=== PATIENT | female | born 1975 | race African-American/Black ===

== ENCOUNTER 2017-01-02 15:34 | Emergency (ER) | payer SELFPAY ==
[~2017-01-02] VITALS: Ht 167.6 cm; Wt 80.0 kg
[~2017-01-02 15:34] MED LIST: ASPI81TA82 PO; CARV3.125 PO
[2017-01-02 15:38] VITALS: BP 176/88; PULSE 88; RESP 18; TEMP 97.7; O2SAT 100
[2017-01-02 15:54] LABS: BLOOD, URINE LARGE (NEG); GLUCOSE,URINE NEG (NEG); KETONE, URINE NEG (NEG); NITRITE,URINE NEG (NEG)
[2017-01-02 16:05] LABS: URINE COLOR STRAW (YELLW/STRAW)
[2017-01-02 16:06] LABS: COMMENT (UR) CULTURE INDICATED; CULTURE IF INDICATED CULTURE INDICATED; SQUAMOUS EPITHELIAL CELL URINE > 8 /hpf (0-5); WBC, URINE INNUM /hpf (0-5)
--- NOTE | 2017-01-02 16:20 | PD ---
HPI Chief Complaint: Complaint Time Seen by Provider: 16:00 Travel History International Travel<30 days: No Contact w/Intl Traveler<30days: No Traveled to known affect area: No History of Present Illness HPI 41-year-old female presents to the emergency department for evaluation of urinary frequency, urgency, dysuria times one day. Patient denies fever, chills , back pain, nausea or vomiting. She reports she's had a UTI in the past with similar symptoms. Symptom severity is moderate. No aggravating or alleviating factors. PFSH Past Medical History Arthritis: No Asthma: No Autoimmune Disease: No Blood Disorders: No Anxiety: Yes Depression: No Heart Rhythm Problems: Yes Cancer: No Cardiac Catheterization: Yes Cardiovascular Problems: Yes High Cholesterol: No Chemotherapy: No Chest Pain: No Congestive Heart Failure: No COPD: No Cerebrovascular Accident: No Diabetes: No Diminished Hearing: No Endocrine: No GERD: No Glaucoma: No Genitourinary: No Headaches: No Hepatitis: No Hiatal Hernia: No Hypertension: No Immune Disorder: No Kidney Stones: No Musculoskeletal: No Neurologic: Yes (SYNCOPAL EPISODES) Psychiatric: No Reproductive: No Respiratory: No Immunizations Current: No Migraines: No Myocardial Infarction: No Radiation Therapy: No Renal Failure: No Seizures: Yes (FAMILY WITNESSED SEIZURE X 1 01/19/10 EVAC WITNESSED 2 ) Sickle Cell Disease: No Sleep Apnea: No Thyroid Disease: No Ulcer: No Influenza Vaccination: No PNEUMOCCOCAL Vaccine (Year): 2 ?: Not LMP: 12/2016 Menopausal: No : 2 Para: 1 Miscarriage: 1 Past Surgical History Abdominal Surgery: No AICD: No Appendectomy: No Arteriovenous Shunt: No Cardiac Surgery: No Cholecystectomy: No Ear Surgery: No Endocrine Surgery: No Eye Surgery: No Genitourinary Surgery: No Gynecologic Surgery: No Insulin Pump: No Joint Replacement: No Oral Surgery: No Pacemaker: No Thoracic Surgery: No Social History Alcohol Use: Yes (occ) Tobacco Use: No Substance Use: No Allergies-Medications (Allergen,Severity, Reaction): Coded Allergies: No Known Allergies (Verified , 01/02/17) Reported Meds & Prescriptions Reported Meds & Active Scripts Active No Active Prescriptions or Reported Medications Review of Systems Except as stated in HPI: all other systems reviewed are Neg General / Constitutional: No: Fever Eyes: No: Visual changes HENT: No: Headaches Cardiovascular: No: Chest Pain or Discomfort Respiratory: No: Shortness of Breath Gastrointestinal: No: Abdominal Pain Genitourinary: Positive: Urgency, Frequency, Dysuria Physical Exam Narrative GENERAL: Well-nourished, well-developed patient. SKIN: Focused skin assessment warm/dry. HEAD: Normocephalic. EYES: No scleral icterus. No injection or drainage. NECK: Supple, trachea midline. No JVD or lymphadenopathy. CARDIOVASCULAR: Regular rate and rhythm without murmurs, gallops, or rubs. RESPIRATORY: Breath sounds equal bilaterally. No accessory muscle use. GASTROINTESTINAL: Abdomen soft, non-tender, nondistended. MUSCULOSKELETAL: No cyanosis, or edema. BACK: Nontender without obvious deformity. No CVA tenderness. Data Data Last Documented VS Vital Signs Date Time Temp Pulse Resp B/P Pulse Ox O2 Delivery O2 Flow Rate FiO2 01/02/17 15:38 97.7 88 18 176/88 100 Orders Urinalysis - C+S If Indicated (01/02/17 15:40) Urine Culture (01/02/17 15:50) Labs Laboratory Tests Test 01/02/17 15:50 Urine Color STRAW Urine Turbidity SLIGHT Urine pH 6.0 Urine Specific [place] 1.002 Urine Protein NEG mg/dL Urine Glucose (UA) NEG mg/dL Urine Ketones NEG mg/dL Urine Occult Blood LARGE Urine Nitrite NEG Urine Bilirubin NEG Urine Leukocyte Esterase LARGE Urine RBC 10-14 /hpf Urine WBC INNUM /hpf Urine WBC Clumps FEW Urine Squamous Epithelial > 8 /hpf Cells Microscopic Urinalysis Comment CULTURE INDICATED MDM Medical Decision Making Medical Screen Exam Complete: Yes Emergency Medical Condition: Yes Differential Diagnosis UTI, pyelonephritis, vaginitis Narrative Course 41-year-old female with chief complaint of dysuria, frequency, urgency times one day. Patient denies fever, chills, back pain, nausea or vomiting. Patient is well-appearing and physical exam is benign. UA reveals 10-15 RBCs, and innumerous WBCs. Patient will be treated for UTI. She was encouraged to push fluids. Follow-up with primary care doctor. Return precautions discussed. Patient verbalizes understanding and agrees to plan. Diagnosis Primary Impression: UTI (urinary tract infection) Qualified Code: N30.01 - Acute cystitis with hematuria Referrals: Primary Care Physician Additional Instructions: Take the antibiotics as prescribed. Stay well hydrated by drinking plenty of fluids. Return to the emergency department if he developed new or worsening symptoms such as fever, chills, severe back pain, nausea or vomiting. Scripts Phenazopyridine (Pyridium)100 Mg [id number] Mg PO Q8H PRN (DYSURIA) #6 TAB Ref 0 Prov:Anita Lin 01/02/17 Nitrofurantoin Monohydrate Macrocrystals (Macrobid)100 Mg [id number] Mg PO BID #14 CAP Ref 0 Prov:Anita Lin 01/02/17 Disposition: 01 DISCHARGE HOME Condition: Stable Anita Lin Jan 02, 2017 16:20
[2017-01-02] MEDS ORDERED: MACR100C2 PO (16:21)
[2017-01-02] MEDS ORDERED: PHEN0.4T PO (16:21)
== END 2017-01-02 16:34 | disposition home or self-care (01) ==
LOC: PHED 15:34
DX: N30.01 Acute cystitis with hematuria (principal); B96.89 Other specified bacterial agents as the cause of diseases classified elsewhere
CPT/HCPCS: 81001; 87086; 99284

== ENCOUNTER 2017-03-11 15:57 | Emergency (ER) | payer SELFPAY ==
[~2017-03-11] VITALS: Ht 167.6 cm; Wt 77.3 kg
[~2017-03-11 15:57] MED LIST changes: -ASPI81TA82 PO; -CARV3.125 PO; +MACR100C2 PO; +PHEN0.4T PO
[2017-03-11 16:00] VITALS: BP 158/87; PULSE 87; RESP 16; TEMP 97.9; O2SAT 100
[2017-03-11] MEDS ORDERED: beta blocker PO (16:17)
--- NOTE | 2017-03-11 16:31 | PD ---
HPI Chief Complaint: Syncope/Near-Syncope Time Seen by Provider: 16:18 Travel History International Travel<30 days: No Contact w/Intl Traveler<30days: No Traveled to known affect area: No History of Present Illness HPI 41-year-old female came to the emergency room after she had a near syncopal episode at work. Patient said she recently had an argument with somebody after which this happened. She did not completely pass out however. She sat down and once the feeling went away she started doing her work again. But since then she noticed that she was going to the restroom frequently to urinate. No dysuria. Patient has had UTIs in the past. Vital signs were stable. She is otherwise a relatively healthy individual. No history of pain, fever or chills. [facility] Past Medical History Narrative Medical List of her past medical, surgical, social and family history is reviewed from the nursing note. Arthritis: No Asthma: No Autoimmune Disease: No Blood Disorders: No Anxiety: Yes Depression: No Heart Rhythm Problems: Yes Cancer: No Cardiac Catheterization: Yes Cardiovascular Problems: Yes High Cholesterol: No Chemotherapy: No Chest Pain: No Congestive Heart Failure: No COPD: No Cerebrovascular Accident: No Diabetes: No Diminished Hearing: No Endocrine: No GERD: No Glaucoma: No Genitourinary: No Headaches: No Hepatitis: No Hiatal Hernia: No Hypertension: No Immune Disorder: No Kidney Stones: No Musculoskeletal: No Neurologic: Yes (SYNCOPAL EPISODES) Psychiatric: No Reproductive: No Respiratory: No Immunizations Current: No Migraines: No Myocardial Infarction: No Radiation Therapy: No Renal Failure: No Seizures: Yes (FAMILY WITNESSED SEIZURE X 1 01/19/10 EVAC WITNESSED 2 ) Sickle Cell Disease: No Sleep Apnea: No Thyroid Disease: No Ulcer: No Influenza Vaccination: No PNEUMOCCOCAL Vaccine (Year): 2 ?: Not Menopausal: No : 2 Para: 1 Miscarriage: 1 Past Surgical History Abdominal Surgery: No AICD: No Appendectomy: No Arteriovenous Shunt: No Cardiac Surgery: No Cholecystectomy: No Ear Surgery: No Endocrine Surgery: No Eye Surgery: No Genitourinary Surgery: No Gynecologic Surgery: No Insulin Pump: No Joint Replacement: No Oral Surgery: No Pacemaker: No Thoracic Surgery: No Social History Alcohol Use: Yes (occ) Tobacco Use: No Substance Use: No Allergies-Medications (Allergen,Severity, Reaction): Coded Allergies: No Known Allergies (Verified , 03/14/17) Comments No known drug allergies. Reported Meds & Prescriptions Reported Meds & Active Scripts Active Ativan (Lorazepam) 0.5 Mg Tab 0.5 Mg PO DAILY PRN Macrobid (Nitrofurantoin Monoh/Nitrofur Macro) 100 Mg Cap 100 Mg PO BID Narrative Medication List of her home medications reviewed from the nursing note. Review of Systems Except as stated in HPI: all other systems reviewed are Neg Physical Exam Narrative GENERAL: Awake, alert, no obvious distress SKIN: Focused skin assessment warm/dry. HEAD: Atraumatic. Normocephalic. EYES: Pupils equal and round. No scleral icterus. No injection or drainage. ENT: No nasal bleeding or discharge. Mucous membranes pink and moist. NECK: Trachea midline. No JVD. CARDIOVASCULAR: Regular rate and rhythm. No murmur appreciated. RESPIRATORY: No accessory muscle use. Clear to auscultation. Breath sounds equal bilaterally. GASTROINTESTINAL: Abdomen soft, non-tender, nondistended. Hepatic and splenic margins not palpable. MUSCULOSKELETAL: No obvious deformities. No clubbing. No cyanosis. No edema. NEUROLOGICAL: Awake and alert. No obvious cranial nerve deficits. Motor grossly within normal limits. Normal speech. PSYCHIATRIC: Appropriate mood and affect; insight and judgment normal. Data Data Last Documented VS Orders Orders Urinalysis - C+S If Indicated (03/11/17 16:36) Ed Urine Pregnancytest Poc (03/11/17 16:36) Orthostatic Vital Signs (03/11/17 16:36) Urine Culture (03/11/17 16:36) Nitrofurantoin Monohyd Macrocr (Macrobid (03/11/17 17:45) Electrocardiogram (03/11/17 16:18) Labs Laboratory Tests Test 03/11/17 16:36 Urine Color YELLOW Urine Turbidity CLOUDY Urine pH 6.0 Urine Specific [place] 1.028 Urine Protein NEG mg/dL Urine Glucose (UA) NEG mg/dL Urine Ketones 80 OR GREATER mg/dL Urine Occult Blood LARGE Urine Nitrite NEG Urine Bilirubin NEG Urine Leukocyte Esterase LARGE Urine RBC 100-200 /hpf Urine WBC INNUM /hpf Urine Squamous Epithelial Cells 0-5 /hpf Urine Bacteria RARE /hpf Microscopic Urinalysis Comment CULTURE INDICATED MDM Medical Decision Making Medical Screen Exam Complete: Yes Emergency Medical Condition: Yes Medical Record Reviewed: Yes Differential Diagnosis UTI, orthostatic hypotension, dehydration Narrative Course 5:30 PM patient was given by mouth Macrobid. She will be discharged home. With this headache vital signs were done and they were negative. Procedures EKG Prior to Arrival: No Diagnosis Primary Impression: UTI (urinary tract infection) Qualified Codes: N39.0 - Urinary tract infection, site not specified; R31.9 - Hematuria, unspecified Additional Instructions: Please return to the ER if the condition worsens or any other new concerns like vomiting and unable to hold the antibiotic down. Otherwise follow-up with your primary care in couple days. Take the medication as per the prescription direction. Med/Other Pt SpecificInfo: Prescription(s) given Scripts Nitrofurantoin Monohydrate Macrocrystals (Macrobid) 100 Mg Cap 100 MG PO BID for Infection, #20 CAP 0 Refills Prov: Junior Zamudio MD 03/11/17 Disposition: 01 DISCHARGE HOME Condition: Stable Junior Zamudio MD Mar 11, 2017 16:31
[2017-03-11 16:56] LABS: BLOOD, URINE LARGE (NEG); GLUCOSE,URINE NEG (NEG); KETONE, URINE 80 OR GREATER mg/dL (NEG); NITRITE,URINE NEG (NEG)
[2017-03-11 17:01] LABS: URINE COLOR YELLOW (YELLW/STRAW)
[2017-03-11 17:02] LABS: BACTERIA, URINE RARE /hpf; COMMENT (UR) CULTURE INDICATED; CULTURE IF INDICATED CULTURE INDICATED; RBC, URINE 100-200 /hpf (0-3); SQUAMOUS EPITHELIAL CELL URINE 0-5 /hpf (0-5); WBC, URINE INNUM /hpf (0-5)
[2017-03-11] MEDS ORDERED: MACR100C2 PO (17:40)
[2017-03-11] MEDS ORDERED: NITROFURANTOIN MONOHYD MACROCR 100 MG CAP PO ONE (17:45)
[2017-03-11 18:35] VITALS: BP 155/106
--- NOTE | 2017-03-12 07:54 | EKG ---
Date Performed: 03/11/2017 Time Performed: 16:18:23 PTAGE: 41 years EKG: Sinus rhythm WITH SINUS ARRHYTHMIA POSSIBLE LEFT ATRIAL ENLARGEMENT BORDERLINE ECG Since PREVIOUS TRACING , no significant change noted PREVIOUS TRACIN09/13/2013 05.50 DOCTOR: Kami Koo Interpretating Date/Time 03/12/2017 07:53:43
== END 2017-03-11 18:38 | disposition home or self-care (01) ==
LOC: PHED 15:57
DX: N39.0 Urinary tract infection, site not specified (principal); R31.9 Hematuria, unspecified; R94.31 Abnormal electrocardiogram [ECG] [EKG]; B96.20 Unspecified Escherichia coli [E. coli] as the cause of diseases classified elsewhere; Z86.79 Personal history of other diseases of the circulatory system; Z86.69 Personal history of other diseases of the nervous system and sense organs
CPT/HCPCS: 81001; 84703; 87077; 87086; 87186; 93005; 99283

== ENCOUNTER 2017-03-14 13:57 | Emergency (ER) | payer SELFPAY ==
[~2017-03-14] VITALS: Ht 167.6 cm; Wt 77.0 kg
[~2017-03-14 13:57] MED LIST changes: -PHEN0.4T PO; +beta blocker PO
[2017-03-14 14:09] VITALS: BP 172/95; PULSE 99; RESP 20; TEMP 99.2; O2SAT 100
[2017-03-14 15:09] VITALS: BP 155/103; PULSE 81; RESP 20; O2SAT 100
[2017-03-14] MEDS ORDERED: LORA-392 PO (15:40)
--- NOTE | 2017-03-14 15:40 | PD ---
HPI Chief Complaint: Anxiety Time Seen by Provider: 15:25 Travel History International Travel<30 days: No Contact w/Intl Traveler<30days: No Traveled to known affect area: No History of Present Illness HPI This 42-year-old female had an episode where she was quite short of breath and extremely anxious. She has had anxiety attacks in the past and in retrospect she thinks it may have been what happened to her. She has not been sleeping well and has been under a lot of stress. 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 She feels fine now. She had previously had multiple panic attacks when she was having problems with her ex- . She does not smoke. She has been told that she has a mitral valve prolapse the past. PFSH Past Medical History Arthritis: No Asthma: No Autoimmune Disease: No Blood Disorders: No Anxiety: Yes Depression: No Heart Rhythm Problems: Yes Cancer: No Cardiac Catheterization: Yes Cardiovascular Problems: Yes (HX heart attack) High Cholesterol: No Chemotherapy: No Chest Pain: No Congestive Heart Failure: No COPD: No Cerebrovascular Accident: No Diabetes: No Diminished Hearing: No Endocrine: No GERD: No Glaucoma: No Genitourinary: No Headaches: No Hepatitis: No Hiatal Hernia: No Hypertension: No Immune Disorder: No Kidney Stones: No Musculoskeletal: No Neurologic: Yes (SYNCOPAL EPISODES) Psychiatric: No Reproductive: No Respiratory: No Immunizations Current: Yes Migraines: No Myocardial Infarction: No Radiation Therapy: No Renal Failure: No Seizures: Yes (FAMILY WITNESSED SEIZURE X 1 01/19/10 EVAC WITNESSED 2 ) Sickle Cell Disease: No Sleep Apnea: No Thyroid Disease: No Ulcer: No PNEUMOCCOCAL Vaccine (Year): 2 ?: Not LMP: 03/07/17 Menopausal: No : 2 Para: 1 Miscarriage: 1 Past Surgical History Abdominal Surgery: No AICD: No Appendectomy: No Arteriovenous Shunt: No Cardiac Surgery: No Cholecystectomy: No Ear Surgery: No Endocrine Surgery: No Eye Surgery: No Genitourinary Surgery: No Gynecologic Surgery: No Insulin Pump: No Joint Replacement: No Oral Surgery: No Pacemaker: No Thoracic Surgery: No Social History Alcohol Use: Yes (SOCIALLY) Tobacco Use: No (NEVER) Substance Use: No Allergies-Medications (Allergen,Severity, Reaction): Coded Allergies: No Known Allergies (Verified , 03/14/17) Reported Meds & Prescriptions Reported Meds & Active Scripts Active Macrobid (Nitrofurantoin Monoh/Nitrofur Macro) 100 Mg Cap 100 Mg PO BID Review of Systems General / Constitutional: No: Fever, Chills Eyes: No: Diploplia HENT: No: Headaches, Vertigo Cardiovascular: No: Chest Pain or Discomfort, Palpitations Respiratory: Positive: Shortness of Breath, No: Cough Gastrointestinal: No: Nausea, Vomiting Genitourinary: No: Frequency Musculoskeletal: No: Myalgias Psychiatric: Positive: Anxiety Hematologic/Lymphatic: No: Easy Bruising Physical Exam Narrative GENERAL: Well-developed female. This time she is quite comfortable and not short of breath. Her vital signs are stable SKIN: Focused skin assessment warm/dry. HEAD: Atraumatic. Normocephalic. EYES: Pupils equal and round. No scleral icterus. No injection or drainage. ENT: No nasal bleeding or discharge. Mucous membranes pink and moist. NECK: Trachea midline. No JVD. CARDIOVASCULAR: Regular rate and rhythm. No murmur appreciated. RESPIRATORY: No accessory muscle use. Clear to auscultation. Breath sounds equal bilaterally. GASTROINTESTINAL: Abdomen soft, non-tender, nondistended. Hepatic and splenic margins not palpable. MUSCULOSKELETAL: No obvious deformities. No clubbing. No cyanosis. No edema. NEUROLOGICAL: Awake and alert. No obvious cranial nerve deficits. Motor grossly within normal limits. Normal speech. PSYCHIATRIC: Appropriate mood and affect; insight and judgment normal. Data Data Last Documented VS Vital Signs Date Time Temp Pulse Resp B/P (MAP) Pulse Ox O2 Delivery O2 Flow Rate FiO2 03/14/17 15:09 81 20 155/103 (120) 100 Room Air 03/14/17 14:09 99.2 [facility] Medical Decision Making Medical Screen Exam Complete: Yes Emergency Medical Condition: Yes Medical Record Reviewed: Yes Differential Diagnosis Differential includes mitral valve prolapse, anxiety attack, panic disorder Narrative Course Her history is certainly consistent with panic disorder. She is asymptomatic now and I don't think testing is warranted. I will prescribed 10 Ativan which have helped her in the past. Diagnosis Primary Impression: Anxiety Additional Impression: Panic disorder Scripts Lorazepam (Ativan) 0.5 Mg Tab 0.5 MG PO DAILY Y for ANXIETY AND/OR AGITATION, #10 TAB 0 Refills Prov: Denys Lerner MD 9/30/17 Disposition: 01 DISCHARGE HOME Condition: Stable Denys Lerner MD Mar 14, 2017 15:40
== END 2017-03-14 15:56 | disposition home or self-care (01) ==
LOC: PHED 13:57
DX: F41.9 Anxiety disorder, unspecified (principal); F41.0 Panic disorder [episodic paroxysmal anxiety]; Z86.59 Personal history of other mental and behavioral disorders; Z86.79 Personal history of other diseases of the circulatory system; Z86.69 Personal history of other diseases of the nervous system and sense organs
CPT/HCPCS: 99283

== ENCOUNTER 2017-08-31 20:19 | Emergency (ER) | payer SELFPAY ==
[~2017-08-31] VITALS: Ht 175.3 cm; Wt 83.8 kg
[~2017-08-31 20:19] MED LIST changes: +LORA-392 PO; -beta blocker PO
[2017-08-31 20:25] VITALS: BP 158/89; PULSE 87; RESP 16; TEMP 98; O2SAT 99
--- NOTE | 2017-08-31 22:06 | PD ---
HPI Chief Complaint: Complaint Time Seen by Provider: 22:02 Travel History International Travel<30 days: No Contact w/Intl Traveler<30days: No Traveled to known affect area: No History of Present Illness HPI 42-year-old female here for evaluation of urinary frequency that started today. Patient believes she may have a UTI. No fevers or chills. No flank pain. No nausea or vomiting. No abdominal pain. No vaginal bleeding or discharge. PFSH Past Medical History Arthritis: No Asthma: No Autoimmune Disease: No Blood Disorders: No Anxiety: Yes Depression: No Heart Rhythm Problems: Yes Cancer: No Cardiac Catheterization: Yes Cardiovascular Problems: Yes (HX heart attack) High Cholesterol: No Chemotherapy: No Chest Pain: No Congestive Heart Failure: No COPD: No Cerebrovascular Accident: No Diabetes: No Diminished Hearing: No Endocrine: No GERD: No Glaucoma: No Genitourinary: Yes (FREQUENT UTI) Headaches: No Hepatitis: No Hiatal Hernia: No Hypertension: No Immune Disorder: No Kidney Stones: No Musculoskeletal: No Neurologic: Yes (SYNCOPAL EPISODES) Psychiatric: No Reproductive: No Respiratory: No Immunizations Current: Yes Migraines: No Myocardial Infarction: No Radiation Therapy: No Renal Failure: No Seizures: Yes (FAMILY WITNESSED SEIZURE X 1 01/19/10 EVAC WITNESSED 2 ) Sickle Cell Disease: No Sleep Apnea: No Thyroid Disease: No Ulcer: No Influenza Vaccination: No PNEUMOCCOCAL Vaccine (Year): 2 ?: Not LMP: 08/26/17 Menopausal: No : 2 Para: 1 Miscarriage: 1 Past Surgical History Abdominal Surgery: No AICD: No Appendectomy: No Arteriovenous Shunt: No Cardiac Surgery: No Cholecystectomy: No Ear Surgery: No Endocrine Surgery: No Eye Surgery: No Genitourinary Surgery: No Gynecologic Surgery: No Insulin Pump: No Joint Replacement: No Oral Surgery: No Pacemaker: No Thoracic Surgery: No Social History Alcohol Use: Yes (SOCIALLY) Tobacco Use: No (NEVER) Substance Use: No Allergies-Medications (Allergen,Severity, Reaction): Coded Allergies: No Known Allergies (Verified Adverse Reaction, Unknown, 08/31/17) Reported Meds & Prescriptions Reported Meds & Active Scripts Active Ativan (Lorazepam) 0.5 Mg Tab 0.5 Mg PO DAILY PRN Macrobid (Nitrofurantoin Monoh/Nitrofur Macro) 100 Mg Cap 100 Mg PO BID Review of Systems Except as stated in HPI: all other systems reviewed are Neg Physical Exam Narrative GENERAL: Well-developed, well-nourished, comfortable, no apparent distress. SKIN: Focused skin assessment warm/dry. No rash. HEAD: Atraumatic. Normocephalic. EYES: Pupils equal and round. No scleral icterus. No injection or drainage. ENT: Mucous membranes pink and moist. CARDIOVASCULAR: Regular rate and rhythm. RESPIRATORY: No accessory muscle use. Clear to auscultation. Breath sounds equal bilaterally. GASTROINTESTINAL: Abdomen soft, non-tender, nondistended. MUSCULOSKELETAL: No obvious deformities. No clubbing. No cyanosis. No edema. No CVA tenderness. NEUROLOGICAL: Awake and alert. No obvious cranial nerve deficits. Motor grossly within normal limits. Normal speech. PSYCHIATRIC: Appropriate mood and affect; insight and judgment normal. Data Data Last Documented VS Vital Signs Date Time Temp Pulse Resp B/P (MAP) Pulse Ox O2 Delivery O2 Flow Rate FiO2 08/31/17 20:25 98.0 87 16 158/89 (112) 99 Orders Orders Urinalysis - C+S If Indicated (08/31/17 22:04) Ed Urine Pregnancytest Poc (08/31/17 22:04) Urine Culture (08/31/17 22:00) Labs Laboratory Tests Test 08/31/17 22:00 Urine Collection Type CLEAN CATCH Urine Color YELLOW Urine Turbidity SL CLOUDY Urine pH 5.0 Urine Specific [place] LESS/EQUAL 1.005 Urine Protein NEG mg/dL Urine Glucose (UA) NEG mg/dL Urine Ketones NEG mg/dL Urine Occult Blood MOD Urine Nitrite POS Urine Bilirubin NEG Urine Urobilinogen 0.2 MG/DL Urine Leukocyte Esterase LARGE Urine RBC 0-3 /hpf Urine WBC 25-49 /hpf Urine WBC Clumps OCC Urine Squamous Epithelial Cells 0-5 /hpf Urine Bacteria OCC /hpf Urine Mucus OCC /lpf Microscopic Urinalysis Comment CULTURE INDICATED MDM Medical Decision Making Medical Screen Exam Complete: Yes Emergency Medical Condition: Yes Differential Diagnosis UTI, cystitis Narrative Course Vital signs reviewed. UA: Moderate occult blood, positive nitrites, large leukocyte esterase, 25-50 WBCs, occasional WBC clumps, occasional bacteria. Culture indicated. Again the patient denies any vaginal discharge. She is complaining of increased urinary frequency. She will be treated for her UTI with Macrobid as this has helped in the past. PMD or F[facility]ENER follow-up this week. She was advised on when to return to the emergency department patient verbalizes understanding and agreement with plan. Diagnosis Primary Impression: UTI (urinary tract infection) Qualified Codes: N39.0 - Urinary tract infection, site not specified; R31.9 - Hematuria, unspecified Referrals: Primary Care Physician 3 days Additional Instructions: Follow-up with your primary care physician or [facility] physician this week. Take antibiotic as prescribed. Return to the emergency department for worsening symptoms or any other concerns. Scripts Nitrofurantoin Monohydrate Macrocrystals (Macrobid) 100 Mg Cap 100 MG PO BID for Infection for 7 Days, #14 CAP 0 Refills Prov: Jann Lees MD 08/31/17 Disposition: 01 DISCHARGE HOME Condition: Stable Jann Lees MD Aug 31, 2017 22:06
[2017-08-31 22:27] LABS: BILIRUBIN, URINE NEG (NEG); BLOOD, URINE MOD (NEG); GLUCOSE,URINE NEG (NEG); KETONE, URINE NEG (NEG); NITRITE,URINE POS (NEG); URINE COLOR YELLOW (YELLW/STRAW); URINE LEUKOCYTE ESTERASE LARGE (NEG)
[2017-08-31 22:49] LABS: BACTERIA, URINE OCC /hpf; MUCUS URINE OCC /lpf (OCC); RBC, URINE 0-3 /hpf (0-3); SQUAMOUS EPITHELIAL CELL URINE 0-5 /hpf (0-5); WHITE BLOOD CELL CLUMPS OCC
[2017-08-31] MEDS ORDERED: NITROFURANTOIN MONOHYD MACROCR 100 MG CAP PO ONE (23:00)
[2017-08-31] MEDS ORDERED: MACR100C2 PO (23:02)
[2017-08-31 23:12] VITALS: BP 176/109
== END 2017-08-31 23:15 | disposition home or self-care (01) ==
LOC: PHED 20:19
DX: N39.0 Urinary tract infection, site not specified (principal); R31.9 Hematuria, unspecified
CPT/HCPCS: 81001; 84703; 87086; 99283

== ENCOUNTER 2017-12-08 09:05 | Emergency (ER) | payer SELFPAY ==
[~2017-12-08] VITALS: Ht 167.6 cm; Wt 83.4 kg
[2017-12-08 09:07] VITALS: BP 202/88; PULSE 101; RESP 16; TEMP 98.5; O2SAT 99
[2017-12-08 09:23] VITALS: BP 143/92
[2017-12-08] MEDS ORDERED: PRED20 PO (09:39)
[2017-12-08] MEDS ORDERED: VIST25CA PO (09:39)
--- NOTE | 2017-12-08 09:40 | PD ---
HPI Chief Complaint: Skin Problem Time Seen by Provider: 09:15 Travel History International Travel<30 days: No Contact w/Intl Traveler<30days: No Traveled to known affect area: No History of Present Illness HPI 42-year-old female here with pruritic rash to her trunk and extremities 3 days. Denies fever or chills. No recent change in medications. She has reportedly recently started a new diet which includes seafood at most meals. She denies any oral airway swelling or wheezing. Symptoms are slightly improved with OTC Benadryl. No aggravating factors. No prior anaphylactic reactions. LMP 12/03/17. PFSH Past Medical History Anxiety: Yes Heart Rhythm Problems: Yes Cardiac Catheterization: Yes Cardiovascular Problems: Yes (HX heart attack) Genitourinary: Yes (FREQUENT UTI) Neurologic: Yes (SYNCOPAL EPISODES) Immunizations Current: Yes Seizures: Yes (FAMILY WITNESSED SEIZURE X 1 01/19/10 EVAC WITNESSED 2 ) PNEUMOCCOCAL Vaccine (Year): 2 ?: Not Menopausal: No : 2 Para: 1 Miscarriage: 1 Past Surgical History Abdominal Surgery: No AICD: No Appendectomy: No Arteriovenous Shunt: No Cardiac Surgery: No Cholecystectomy: No Ear Surgery: No Endocrine Surgery: No Eye Surgery: No Genitourinary Surgery: No Gynecologic Surgery: No Insulin Pump: No Joint Replacement: No Oral Surgery: No Pacemaker: No Thoracic Surgery: No Social History Alcohol Use: Yes (SOCIALLY) Tobacco Use: No (NEVER) Substance Use: No Allergies-Medications (Allergen,Severity, Reaction): Coded Allergies: No Known Allergies (Verified Adverse Reaction, Unknown, 12/08/17) Reported Meds & Prescriptions Reported Meds & Active Scripts Active Vistaril (Hydroxyzine Pamoate) 25 Mg Cap 25 Mg PO Q6H PRN 5 Days Prednisone 20 Mg Tab 40 Mg PO DAILY Take 40 mg (2 tablets) daily for 5 days Review of Systems Except as stated in HPI: all other systems reviewed are Neg General / Constitutional: No: Fever Eyes: No: Visual changes HENT: No: Headaches Cardiovascular: No: Chest Pain or Discomfort Respiratory: No: Shortness of Breath Gastrointestinal: No: Abdominal Pain Genitourinary: No: Dysuria Musculoskeletal: No: Pain Skin: Positive Rash, Positive Itching Neurologic: No: Weakness Psychiatric: No: Depression Physical Exam Narrative GENERAL: Alert and well-appearing 42-year-old female SKIN: Warm and dry. Slightly raised erythematous maculopapular rash across the trunk and upper extremities. The rash is blanchable. No evidence of secondary infection HEAD: Normocephalic. EYES: No injection or drainage. ENT: No oral airway swelling. No pharyngeal erythema. No oral lesions. Uvula is midline. Airways patent. NECK: Supple, trachea midline. No meningismus. CARDIOVASCULAR: Regular rate and rhythm without murmurs, gallops, or rubs. RESPIRATORY: Breath sounds equal bilaterally. No accessory muscle use. No wheezing. GASTROINTESTINAL: Abdomen soft, non-tender, nondistended. MUSCULOSKELETAL: No cyanosis, or edema. BACK: No CVA tenderness. Data Data Last Documented VS Vital Signs Date Time Temp Pulse Resp B/P (MAP) Pulse Ox O2 Delivery O2 Flow Rate FiO2 12/08/17 09:23 143/92 (109) 12/08/17 09:07 98.5 101 16 99 MDM Medical Decision Making Medical Screen Exam Complete: Yes Emergency Medical Condition: Yes Differential Diagnosis Allergic reaction, viral exanthem, other Narrative Course 42-year-old female here with a pruritic rash for 3 days. She is nontoxic appearing. Vital signs are stable. Afebrile. She will be treated with steroids, antihistamines. Return precautions were discussed. She will also be referred to dermatology. Diagnosis Primary Impression: Rash and nonspecific skin eruption Referrals: Dietary Worker Additional Instructions: Indication as directed. Follow-up with sales account manager. Return to emergency department if he develop new or worsening symptoms as discussed. Scripts Hydroxyzine Pamoate (Vistaril) 25 Mg Cap 25 MG PO Q6H Y for ITCHING for 5 Days, #20 CAP 0 Refills Prov: Anita Lin 12/08/17 Prednisone (Prednisone) 20 Mg Tab 40 MG PO DAILY, #10 TAB 0 Refills Take 40 mg (2 tablets) daily for 5 days Prov: Anita Lin 12/08/17 Disposition: 01 DISCHARGE HOME Condition: Stable Anita Lin Dec 08, 2017 09:39
== END 2017-12-08 09:45 | disposition home or self-care (01) ==
LOC: PHED 09:05 → PHEFT 09:45
DX: R21 Rash and other nonspecific skin eruption (principal)
CPT/HCPCS: 99283